=== PATIENT | female | born 1930 | race Caucasian/White ===

== ENCOUNTER → 2017-01-26 | Outpatient (CLI) | payer MEDICARE ==
--- NOTE | ~2017-01-26 | NM8 ---
[facility] A Service of [facility] & [facility] RADIOLOGY TEXT RESULTS PATIENT: VINITA SCHULTZ LOCATION: [facility] : 32 UNIT #: [id number] AGE: [address]: Marta Nagel MD SEX: F ORDER DR: [id number] [facility] [address] [place], [place] [address] [id number] O MR#: [id number] Acc #: [id number] NAME: VINITA SCHULTZ : 1930 SEX: F STUDY DATE/TIME: 01/26/2017 15:10 UNIT: [facility] ROOM: STUDY DESCRIPTION: VT Bone or Joint Whole Body Attending Physician: Marta Nagel M.D. Referring Physician: Marta Nagel M.D. Ordering Physician: Marta Nagel M.D. Primary Care Physician: Marta Nagel M.D. MEDICAL IMAGING REPORT This report is preliminary unless electronic signature is present EXAM Whole-body bone scan, 01/26/2017. HISTORY Order states Paget disease. History sheet states no fracture, no bone/joint disease known. Patient unaware of Paget disease. Nodule seen on MRI brain. COMPARISON Right knee radiographs 12/06/2016, CT abdomen and pelvis 05/24/2013, MRI of the brain 03/28/2013, right tibia-fibula radiographs 10/01/2017, whole-body bone scan 10/01/2017. TECHNIQUE The patient received 26.8 mCi technetium 99m MDP intravenously and anterior and posterior whole-body scans are supplemented by spot images of the calvaria/cervical spine and thorax. HISTORY No history of cancer. FINDINGS There is minimal residual uptake in the proximal shaft of the right tibia compared to the bone scan of 10/01/2007. At that time, radiographic findings of Paget disease were present. The more recent radiographs of 12/06/2016 demonstrate incompletely included sequela of osseous Paget disease. The minimal current uptake on the bone scan is most compatible with the late inactive phase. There is no additional skeletal evidence of osseous Paget disease. Small focus of increased uptake in the right inferior pubic ramus region could reflect urine contamination or a right inferior pubic ramus fracture. No right inferior pubic ramus fracture, abnormality is noted by STS. [facility] A Service of [facility] & [facility] RADIOLOGY TEXT RESULTS PATIENT: VINITA SCHULTZ LOCATION: [facility] : 32 UNIT #: [id number] AGE: [address]: Marta Nagel MD SEX: F ORDER DR: CT of 05/24/2013. There is mild increased uptake of the bilateral patellofemoral compartments of the knees and the right hindfoot or ankle. Findings are likely arthritic. There is no evidence of neoplasm. The axial skeleton is normal. IMPRESSION 1. Significantly diminished uptake of the right proximal tibial shaft compared to the prior bone scan of 10/01/2007 with radiographic findings at that time compatible with Paget disease. Findings are now likely related to inactive Paget disease in this area. 2. There is no evidence of active Paget disease. 3. No evidence of metastatic disease. 4. Small focus of increased uptake in the right inferior pubic ramus raises the possibility of a fracture versus urinary contamination. Correlate for any symptoms in this area. 5. Mild presumed arthritic uptake in the patellofemoral compartments of the knees and the right ankle/hindfoot. Dictated by... Madelaine Dunne M.D. THIS IS AN ELECTRONICALLY VERIFIED REPORT Madelaine Dunne M.D. at 01/31/2017 11:20 AM RENÉE/colton TD: 01/30/2017 15:03 JOB #: [id number] MEDICAL IMAGING REPORT COPY
== END | disposition home or self-care (01) ==
LOC: CNUC 10:34
DX: M88.89 Osteitis deformans of multiple sites (principal)
CPT/HCPCS: 78306; A9503

== ENCOUNTER → 2017-03-13 | Outpatient (CLI) | payer MEDICARE ==
--- NOTE | ~2017-03-13 | CR63 ---
[facility] A Service of [facility] & [facility] RADIOLOGY TEXT RESULTS PATIENT: VINITA SCHULTZ LOCATION: [facility] : 32 UNIT #: [id number] AGE: [address]: Crystal Scott SEX: F ORDER DR: [id number] [facility] [address] [place], [place] [address] [id number] O MR#: [id number] Acc #: [id number] NAME: VINITA SCHULTZ : 1930 SEX: F STUDY DATE/TIME: 03/13/2017 17:09 UNIT: [facility] ROOM: STUDY DESCRIPTION: CR Chest 2 View Attending Physician: Crystal Scott A.P.R.N. Referring Physician: Crystal Scott A.P.R.N. Ordering Physician: Crystal Scott A.P.R.N. Primary Care Physician: Marta Nagel M.D. MEDICAL IMAGING REPORT This report is preliminary unless electronic signature is present EXAM PA and lateral chest, 03/13/2017 COMPARISON 03/25/2013 HISTORY Cough, congestion for 3 days. FINDINGS PA and lateral views are obtained. The heart size is mildly enlarged. The vascular pattern in the chest is normal. Lungs are clear. The patient has underlying chronic emphysematous lung disease. The pleural effusions have completely resolved. There is atherosclerotic calcification in the aorta and granulomatous calcifications in both lungs. CONCLUSION 1. Cardiomegaly without evidence of acute cardiac decompensation. 2. Chronic lung disease. 3. No acute process identified. Dictated by... Timmy Andersen M.D. THIS IS AN ELECTRONICALLY VERIFIED REPORT Timmy Andersen M.D. at 03/16/2017 7:10 AM Adrienne TD: 03/14/2017 08:13 JOB #: [id number] MEDICAL IMAGING REPORT Page 1 of 1 COPY
== END | disposition home or self-care (01) ==
LOC: CRAD 16:53
DX: R05 Cough (principal); I51.7 Cardiomegaly; J98.4 Other disorders of lung
CPT/HCPCS: 71020

== ENCOUNTER → 2017-05-29 | Outpatient (CLI) | payer MEDICARE ==
[2017-05-29 15:05] LABS: POC - CREATININE 1.11 mg/dL (0.44-1.03)
== END | disposition home or self-care (01) ==
LOC: CCAT 13:20
PROVIDERS: Urology
DX: K86.2 Cyst of pancreas (principal); Z53.9 Procedure and treatment not carried out, unspecified reason
CPT/HCPCS: 82565

== ENCOUNTER → 2017-06-01 | Outpatient (CLI) | payer MEDICARE ==
--- NOTE | ~2017-06-01 | CT6 ---
[facility] A Service of [facility] & [facility] RADIOLOGY TEXT RESULTS PATIENT: VINITA SCHULTZ LOCATION: [facility] : 32 UNIT #: [id number] AGE: [address]: Mukul Blakely MD SEX: F ORDER DR: [id number] [facility] [address] [place], [place] [address] [id number] O MR#: [id number] Acc #: [id number] NAME: VINITA SCHULTZ : 1930 SEX: F STUDY DATE/TIME: 06/01/2017 11:45 UNIT: [facility] ROOM: STUDY DESCRIPTION: CT Abdomen WWo Cont Attending Physician: Mukul Blakely M.D. Referring Physician: Mukul Blakely M.D. Ordering Physician: Mukul Blakely M.D. Primary Care Physician: Marta Nagel M.D. MEDICAL IMAGING REPORT This report is preliminary unless electronic signature is present EXAM CT of the abdomen without and with contrast INDICATIONS Follow up pancreatic cyst. TECHNIQUE CT of the abdomen was performed before after administration of IV contrast using multiphase protocol. Coronal and sagittal reformatted images were obtained. This CT exam was performed with one or more of the following radiation dose reduction techniques: automatic exposure control, adjustment of mA and/or kV according to patient size, and iterative reconstruction. COMPARISON STUDIES Comparison is made with 03/23/2013. FINDINGS Lung bases are clear. Cardiomegaly. Scattered tiny cysts in the liver. Cholecystectomy. Expected post cholecystectomy bile duct dilatation. Spleen is unremarkable. Prominent bilateral extra-renal pelves. The adrenal glands are unremarkable. There is diffuse dilatation of the main pancreatic duct and multiple cysts elsewhere within the pancreas. These findings are new compared with the CT from 2012. There is a report from a CT in March of this year describing similar findings. There is some ill-defined mass-like low attenuation within the junction of the pancreatic body and the head on image 36 measuring 2.3 x 2.7 cm. This is surrounding the common hepatic artery. The majority of the ductal dilatation described above is within the duct distal to this area. Overall, I am concerned for a primary pancreatic STS. [facility] A Service of [facility] & [facility] RADIOLOGY TEXT RESULTS PATIENT: VINITA SCHULTZ LOCATION: [facility] : 32 UNIT #: [id number] AGE: [address]: Mukul Blakely MD SEX: F ORDER DR: malignancy, such as adenocarcinoma. There is some abnormal soft tissue also abutting the proximal portion of the main pulmonary artery. The remainder of the study is unremarkable. The bone windows show osteopenia. IMPRESSION 1. There is an abnormal low-density mass in the region of the head/body junction of the pancreas surrounding the common hepatic artery measuring 2.7 x 2.3 cm. There is associated pancreatic ductal dilatation distal to the mass. Finding is highly concerning for pancreatic adenocarcinoma. The mass also abuts the base of the main portal vein but no portal vein thrombus is seen. This is new since 2012. At this point, I would recommend GI consultation for evaluation with EUS in an effort to obtain tissue sampling. 2. No definite evidence for any metastatic disease. Dictated by... Kurtis Tran M.D. THIS IS AN ELECTRONICALLY VERIFIED REPORT Kurtis Tran M.D. at 06/04/2017 4:59 PM SAMIA/ifrah TD: 06/03/2017 14:45 JOB #: [id number] MEDICAL IMAGING REPORT Page 1 of 1 COPY
[2017-06-01 11:26] LABS: POC - CREATININE 0.82 mg/dL (0.44-1.03); POC - GFR >60.0 mL/min (>60)
== END | disposition home or self-care (01) ==
LOC: CCAT 10:19
PROVIDERS: Urology
DX: K86.2 Cyst of pancreas (principal); K86.89 Other specified diseases of pancreas
CPT/HCPCS: 74170; 82565; Q9967